=== PATIENT | female | born 1995 | race Caucasian/White ===

== ENCOUNTER 2018-11-27 10:12 | Emergency (ER) | payer OTHER ==
[~2018-11-27] VITALS: Ht 154.9 cm; Wt 62.0 kg
[~2018-11-27 10:12] MED LIST: IBUP800T48 PO; PREN1TAB49 PO
[2018-11-27 10:15] VITALS: BP 137/61; PULSE 79; RESP 18; Ht 154.9 cm; Wt 62.0 kg
--- NOTE | 2018-11-27 12:57 | ERD ---
ER Documentation Chief Complaint Chief Complaint pt bib self with c/o vag bleeding today, + preg test last wk, HPI 23-year-old female presenting with vaginal bleeding started today. Patient took a test at home a week ago and it was positive. She took Plan B after taking the test. Patient then took a repeat testing was negative however she is unsure if she is . Her LNMP was every 28. . Patient is having vaginal spotting with no clots. Denies medical problems. NKDA. Surgical history . Social history denies ROS All systems reviewed and are negative except as per history of present illness. Medications Home Meds Active Scripts Ibuprofen* (Motrin*) 800 Mg Tab, 800 MG PO Q6, #30 TAB Prov:MARLEEN BUCHANAN PA-C 10/20/18 Reported Medications Vits W-Ca,Fe,Fa(<1MG) () 1 Tab Tablet, 1 TAB PO DAILY 08/26/12 Allergies Allergies: Coded Allergies: No Known Allergies (Verified Allergy, Unknown, 10/20/18) PMhx/Soc History of Surgery: Yes ( x1) Anesthesia Reaction: No Hx Neurological Disorder: No Hx Respiratory Disorders: No Hx Cardiac Disorders: No Hx Psychiatric Problems: No Hx Miscellaneous Medical Probl: No Hx Alcohol Use: Yes (occassionally) Hx Substance Use: No Hx Tobacco Use: No Smoking Status: Never smoker FmHx Family History: No diabetes, No coronary disease, No other Physical Exam Vitals Vital Signs Date Temp Pulse Resp B/P (MAP) Pulse Ox O2 O2 Flow FiO2 Time Delivery Rate 11/27/18 98.3 79 18 137/61 97 10:15 (86) Physical Exam GENERAL: The patient is well-appearing, well-nourished, in no acute distress CHEST: Clear to auscultation bilaterally. There are no rales, wheezes or rhonchi. HEART: Regular rate and rhythm. No murmurs, clicks, rubs or gallops. ABDOMEN:Soft, nontender and nondistended. Good bowel sounds. No rebound or guarding. No gross peritonitis. No gross organomegaly or masses. BACK: No CVAT Result Diagram: 11/27/18 1111 Results 24 hrs Laboratory Tests Test 11/27/18 11:11 White Blood Count 7.7 10^3/ul Red Blood Count 4.91 10^6/ul Hemoglobin 13.6 g/dl Hematocrit 41.9 % Mean Corpuscular Volume 85.3 fl Mean Corpuscular Hemoglobin 27.7 pg Mean Corpuscular Hemoglobin Concent 32.5 g/dl Red Cell Distribution Width 13.2 % Platelet Count 348 10^3/UL Mean Platelet Volume 9.7 fl Immature Granulocytes % 0.400 % Neutrophils % 66.6 % Lymphocytes % 23.9 % Monocytes % 7.3 % Eosinophils % 1.4 % Basophils % 0.4 % Nucleated Red Blood Cells % 0.0 /100WBC Immature Granulocytes # 0.030 10^3/ul Neutrophils # 5.1 10^3/ul Lymphocytes # 1.8 10^3/ul Monocytes # 0.6 10^3/ul Eosinophils # 0.1 10^3/ul Basophils # 0.0 10^3/ul Nucleated Red Blood Cells # 0.0 10^3/ul Urine Color YELLOW Urine Clarity CLOUDY Urine pH 8.0 Urine Specific Tebbetts 1.020 Urine Ketones NEGATIVE mg/dL Urine Nitrite NEGATIVE mg/dL Urine Bilirubin NEGATIVE mg/dL Urine Urobilinogen NEGATIVE mg/dL Urine Leukocyte Esterase NEGATIVE Ross/ul Urine Microscopic RBC 6 /HPF Urine Microscopic WBC 5 /HPF Urine Squamous Epithelial Cells MANY /HPF Urine Bacteria FEW /HPF Urine Mucus MANY /HPF Urine Hemoglobin 1+ mg/dL Urine Glucose NEGATIVE mg/dL Urine Total Protein 1+ mg/dl Beta HCG, Quantitative < 2.4 mIU/ml Procedures/MDM DIAGNOSTIC IMAGING REPORT Patient: JEFF SIMMONS : 1995 Age: 23 Sex: F MR #: [id number] DOS: 11/27/18 1104 Ordering MD: NEWTON GARRIDO PA-C Location: [facility] Room/Bed: PROCEDURE: US Pelvis. CLINICAL INDICATION: vaginal bleeding TECHNIQUE: Multiple sonographic images of the pelvis were obtained utilizing a transabdominal technique. The images were reviewed on a PACS workstation. COMPARISON: 10/20/2018 FINDINGS: The uterus is enlarged in size and demonstrates a normal appearance of the myometrium. The uterus measures 12.1 x 4.0 x 6.3 cm in size. The endometrial stripe is homogeneous in appearance and has the thickness of 8 mm. Normal Doppler flow is identified in both ovaries. The right ovary measures 3.0 x 1.6 x 2.1 cm. The left ovary measures 4.6 x 3.0 x 4.2 cm. There is a 3.3 cm simple cyst. No free fluid is present within the pelvis.. RPTAT: AA IMPRESSION: No intrauterine gestation visualized. Simple cyst in the left ovary. Differential diagnosis includes early , missed or ectopic . Follow-up ultrasound and HCG levels is recommended. MDM: hormone is negative. Patient is not . Patient is likely experiencing menses. Urine is negative. Patient is discharged with supportive medications. I have low suspicion for hemodynamic instability. Hemoglobin is stable. Urine is negative. Patient is discharged and recommended follow-up with primary care. All questions answered at discharge Departure Diagnosis: Primary Impression: Vaginal bleeding Condition: Stable Patient Instructions: Menstruation and Your Child: Talking About Periods Referrals: [facility] YOU HAVE RECEIVED A MEDICAL SCREENING EXAM AND THE RESULTS INDICATE THAT YOU DO NOT HAVE A CONDITION THAT REQUIRES URGENT TREATMENT IN THE EMERGENCY DEPARTMENT. FURTHER EVALUATION AND TREATMENT OF YOUR CONDITION CAN WAIT UNTIL YOU ARE SEEN IN YOUR DOCTORS OFFICE WITHIN THE NEXT 1-2 DAYS. IT IS YOUR RESPONSIBILITY TO MAKE AN APPOINTMENT FOR FOLOW-UP CARE. IF YOU HAVE A PRIMARY DOCTOR --you should call your primary doctor and schedule an appointment IF YOU DO NOT HAVE A PRIMARY DOCTOR YOU CAN CALL OUR PHYSICIAN REFERRAL HOTLINE AT IF YOU CAN NOT AFFORD TO SEE A PHYSICIAN YOU CAN CHOSE FROM THE FOLLOWING [facility] [address] [facility]. [facility] [address] [facility] [address] [address] [facility] [address] [facility]. [facility] [address] [facility]. [facility]. [address] Additional Instructions: FOLLOW UP WITH YOUR PRIMARY CARE PHYSICIAN TOMORROW.Return to this facility if you are not improving as expected. ANETTE GARRIDO PA-C Nov 27, 2018 12:57
== END 2018-11-27 12:48 | disposition home or self-care (01) ==
LOC: FTE 10:12
DX: N93.9 Abnormal uterine and vaginal bleeding, unspecified (principal)
CPT/HCPCS: 36415; 76801; 81001; 84702; 85025; 86900; 86901; Z7502

== ENCOUNTER 2018-12-21 13:18 | Emergency (ER) | payer OTHER ==
[~2018-12-21] VITALS: Wt 73.6 kg
[2018-12-21 13:22] VITALS: BP 127/90; PULSE 95; RESP 18
--- NOTE | 2018-12-22 13:27 | ERD ---
ER Documentation Chief Complaint Chief Complaint VAG SPOTTING 2 WKS AGO, UNK ON , INTERMITTENT ABD CRAMPING HPI 23-year-old female presenting with vaginal bleeding times 2 weeks. Patient is unsure if she is . She states she had abnormal periods and her last known regular period was November 05. . Patient is experiencing some pelvic cramping. Denies any fevers. Denies dysuria. Denies medical problems. NKDA. Surgical history . Social history denies ROS All systems reviewed and are negative except as per history of present illness. Medications Home Meds Active Scripts Ibuprofen* (Motrin*) 800 Mg Tab, 800 MG PO Q6, #30 TAB Prov:MARLEEN BUCHANAN PA-C 10/20/18 Reported Medications Vits W-Ca,Fe,Fa(<1MG) () 1 Tab Tablet, 1 TAB PO DAILY 08/26/12 Allergies Allergies: Coded Allergies: No Known Allergies (Verified Allergy, Unknown, 10/20/18) PMhx/Soc History of Surgery: Yes ( x1) Anesthesia Reaction: No Hx Neurological Disorder: No Hx Respiratory Disorders: No Hx Cardiac Disorders: No Hx Psychiatric Problems: No Hx Miscellaneous Medical Probl: No Hx Alcohol Use: Yes (occassionally) Hx Substance Use: No Hx Tobacco Use: No FmHx Family History: No diabetes, No coronary disease, No other Physical Exam Vitals Vital Signs Date Temp Pulse Resp B/P (MAP) Pulse Ox O2 O2 Flow FiO2 Time Delivery Rate 12/21/18 98.8 95 18 127/90 97 13:22 (102) Physical Exam GENERAL: The patient is well-appearing, well-nourished, in no acute distress CHEST: Clear to auscultation bilaterally. There are no rales, wheezes or rhonchi. HEART: Regular rate and rhythm. No murmurs, clicks, rubs or gallops. ABDOMEN:Soft, nontender and nondistended. Good bowel sounds. No rebound or guarding. No gross peritonitis. No gross organomegaly or masses. BACK: No midline or flank tenderness. Result Diagram: 12/21/18 1404 Results 24 hrs Laboratory Tests Test 12/21/18 14:04 12/21/18 14:05 White Blood Count 8.4 10^3/ul Red Blood Count 4.83 10^6/ul Hemoglobin 13.3 g/dl Hematocrit 40.6 % Mean Corpuscular Volume 84.1 fl Mean Corpuscular Hemoglobin 27.5 pg Mean Corpuscular Hemoglobin Concent 32.8 g/dl Red Cell Distribution Width 13.0 % Platelet Count 372 10^3/UL Mean Platelet Volume 9.9 fl Immature Granulocytes % 0.200 % Neutrophils % 61.5 % Lymphocytes % 26.3 % Monocytes % 8.8 % Eosinophils % 2.7 % Basophils % 0.5 % Nucleated Red Blood Cells % 0.0 /100WBC Immature Granulocytes # 0.020 10^3/ul Neutrophils # 5.2 10^3/ul Lymphocytes # 2.2 10^3/ul Monocytes # 0.7 10^3/ul Eosinophils # 0.2 10^3/ul Basophils # 0.0 10^3/ul Nucleated Red Blood Cells # 0.0 10^3/ul Urine Color YELLOW Urine Clarity SLIGHTLY CLOUDY Urine pH 8.0 Urine Specific [place] 1.023 Urine Ketones NEGATIVE mg/dL Urine Nitrite NEGATIVE mg/dL Urine Bilirubin NEGATIVE mg/dL Urine Urobilinogen 1+ mg/dL Urine Leukocyte Esterase NEGATIVE Ross/ul Urine Microscopic RBC 7 /HPF Urine Microscopic WBC 5 /HPF Urine Squamous Epithelial Cells MODERATE /HPF Urine Mucus MANY /HPF Urine Hemoglobin NEGATIVE mg/dL Urine Glucose NEGATIVE mg/dL Urine Total Protein NEGATIVE mg/dl Beta HCG, Quantitative < 2.4 mIU/ml POC Beta HCG, Qualitative NEGATIVE Procedures/MDM DIAGNOSTIC IMAGING REPORT Patient: JEFF SIMMONS : 1995 Age: 23 Sex: F MR #: [id number] DOS: 12/21/18 1352 Ordering MD: NEWTON GARRIDO PA-C Location: E Room/Bed: PROCEDURE: US OB. CLINICAL INDICATION: Vaginal bleeding in . TECHNIQUE: Transabdominal and endovaginal imaging of the uterus is available for review COMPARISON: None available FINDINGS: No intrauterine is identified. The endometrial stripe is homogeneous and measures 11 mm in thickness. The uterus is otherwise unremarkable. The right ovary measures 3.8 x 2.1 x 2.5 cm and the left ovary measures 3.3 x 1.6 x 2.2 cm. No adnexal mass is identified. No free fluid is noted within the pelvis. IMPRESSION: No intrauterine identified. There are no adnexal masses. Correlation with serial beta HCGs and repeat pelvic ultrasound as clinically indicated, is recommended, as ectopic is not excluded on this examination. MDM: 23-year-old female presenting with vaginal bleeding. Patient has negative test. I have low suspicion for ectopic or . Patient may be experiencing light menses. Patient is told symptoms change or worsen to return the ER. Hemoglobin is stable and patient's urine is negative. All questions answered at discharge Departure Diagnosis: Primary Impression: Vaginal bleeding Condition: Stable Patient Instructions: Menorrhagia Referrals: [facility] YOU HAVE RECEIVED A MEDICAL SCREENING EXAM AND THE RESULTS INDICATE THAT YOU DO NOT HAVE A CONDITION THAT REQUIRES URGENT TREATMENT IN THE EMERGENCY DEPARTMENT. FURTHER EVALUATION AND TREATMENT OF YOUR CONDITION CAN WAIT UNTIL YOU ARE SEEN IN YOUR DOCTORS OFFICE WITHIN THE NEXT 1-2 DAYS. IT IS YOUR RESPONSIBILITY TO MAKE AN APPOINTMENT FOR FOLOW-UP CARE. IF YOU HAVE A PRIMARY DOCTOR --you should call your primary doctor and schedule an appointment IF YOU DO NOT HAVE A PRIMARY DOCTOR YOU CAN CALL OUR PHYSICIAN REFERRAL HOTLINE AT IF YOU CAN NOT AFFORD TO SEE A PHYSICIAN YOU CAN CHOSE FROM THE FOLLOWING [facility] [address] [facility]. [facility] [address] [facility] [address] [facility] [facility] [address] [facility]. [facility] [address] [facility]. [facility]. [address] Additional Instructions: FOLLOW UP WITH YOUR PRIMARY CARE PHYSICIAN TOMORROW.Return to this facility if you are not improving as expected. ANETTE GARRIDO PA-C Dec 22, 2018 13:27
== END 2018-12-21 15:44 | disposition home or self-care (01) ==
LOC: FTE 13:18
DX: N93.9 Abnormal uterine and vaginal bleeding, unspecified (principal); R10.2 Pelvic and perineal pain; Z32.02 Encounter for pregnancy test, result negative
CPT/HCPCS: 36415; 76801; 76817; 81001; 81025; 84702; 85025; 86900; 86901; Z7502; 81003

== ENCOUNTER 2019-04-19 16:31 | Emergency (ER) | payer OTHER ==
[~2019-04-19] VITALS: Ht 162.6 cm; Wt 68.2 kg
[~2019-04-19 16:31] MED LIST changes: +ONDA4TAB14 PO
[2019-04-19 16:33] VITALS: Ht 162.6 cm; Wt 68.2 kg
--- NOTE | 2019-04-19 18:49 | ERD ---
ER Documentation Chief Complaint Chief Complaint NAUSEA/VOMITING X 1 WEEK , 10 WEEKS PREG , DENIES ABD PAIN , NO VAG BLEED HPI The patient is a 24-year-old female, presenting to the ER because of nausea and vomiting for the last days, denies hematemesis/hematochezia, she had similar symptoms previously with her first . She is about 10 weeks , denies any vaginal bleeding, fever, chills, neck pain, chest pain, abdominal pain, dysuria, diarrhea. She does not smoke nor drink, 2 para 1 Past medical history: Anemia Past surgical history: ROS All systems reviewed and are negative except as per history of present illness. Medications Home Meds Active Scripts Ondansetron (Ondansetron Odt) 4 Mg Tab.rapdis, 4 MG PO Q6H PRN for NAUSEA AND/OR VOMITING, #10 TAB Prov:CATRACHITA FLOWERS MD 04/19/19 Ibuprofen* (Motrin*) 800 Mg Tab, 800 MG PO Q6, #30 TAB Prov:MARLEEN BUCHANAN PA-C 10/20/18 Reported Medications Vits W-Ca,Fe,Fa(<1MG) () 1 Tab Tablet, 1 TAB PO DAILY 08/26/12 Allergies Allergies: Coded Allergies: No Known Allergies (Verified Allergy, Unknown, 04/19/19) PMhx/Soc History of Surgery: Yes ( x1) Anesthesia Reaction: No Hx Neurological Disorder: No Hx Respiratory Disorders: No Hx Cardiac Disorders: No Hx Psychiatric Problems: No Hx Miscellaneous Medical Probl: No Hx Alcohol Use: Yes (occassionally) Hx Substance Use: No Hx Tobacco Use: No Physical Exam Vitals Vital Signs Date Temp Pulse Resp B/P (MAP) Pulse Ox O2 O2 Flow FiO2 Time Delivery Rate 04/19/19 98.0 79 16 119/56 100 Room Air 19:56 (77) 04/19/19 98.1 88 18 132/60 97 16:33 (84) Physical Exam Const: No acute distress. Head: Atraumatic. Eyes: Normal Conjunctiva. ENT: Normal External Ears, Nose and Mouth. Neck: Full range of motion. No meningismus. Resp: Clear to auscultation bilaterally. Cardio: Regular rate and rhythm. Abd: Soft, non distended, normal bowel sounds, non tender. Skin: No petechiae or rashes. Back: No midline or flank tenderness. Ext: No cyanosis, or edema. Neur: Awake and alert. No focal deficit Psych: Normal Mood and Affect. Results 24 hrs Laboratory Tests Test 04/19/19 19:31 Bedside Urine pH (LAB) 6.0 Bedside Urine Protein (LAB) 1+ Bedside Urine Glucose (UA) Negative Bedside Urine Ketones (LAB) 3+ Bedside Urine Blood 1+ Bedside Urine Nitrite (LAB) Negative Bedside Urine Leukocyte Esterase (L Negative Current Medications Medications Dose Sig/Kira Start Time Status Last (Trade) Ordered Route PRN Stop Time Admin Dose Reason Admin Sodium 1,000 ml @ Q1H ONCE 04/19/19 DC 04/19/19 Chloride 1,000 mls/hr IV 19:00 19:04 04/19/19 19:57 Ondansetron 4 mg ONCE STAT 04/19/19 DC 04/19/19 HCl (Zofran IV 18:54 19:03 Inj) 04/19/19 18:55 Procedures/MDM MEDICAL MAKING DECISION: The patient is a 24-year-old female, presenting with related vomiting, treated with 1 L normal saline for clinical dehydration, Zofran 4 mg IV for nausea with good response, is stable for present follow-up The differential diagnoses considered include but are not limited to cholelithiasis, cholecystitis, choledocholithiasis, cholangitis, pancreatitis, hepatitis, gastritis, peptic ulcer disease, gastric ulcer, appendicitis, cystitis, diverticulitis, partial small bowel obstruction. Departure Diagnosis: Primary Impression: Nausea and vomiting Condition: Good Comments She was discharged with Zofran I discussed the findings with the patient. I advised the patient to follow-up with the primary physician in about 1-2 days, sooner if needed and return if any concern. Disclaimer: Inadvertent spelling and grammatical errors are likely due to EHR/dictation software use and do not reflect on the overall quality of patient care. Also, please note that the electronic time recorded on this note does not necessarily reflect the actual time of the patient encounter. CATRACHITA FLOWERS MD Apr 19, 2019 18:49
[2019-04-19] MEDS ORDERED: ONDANSETRON 4 MG INJ IV STA (18:54)
[2019-04-19] MEDS ORDERED: SOD CHLORIDE 0.9% 1,000 ML IV ONE (19:00)
[2019-04-19 19:56] VITALS: BP 119/56; PULSE 79; RESP 16
== END 2019-04-19 19:57 | disposition home or self-care (01) ==
LOC: FTE 16:31
DX: O21.9 Vomiting of pregnancy, unspecified (principal); Z3A.10 10 weeks gestation of pregnancy
CPT/HCPCS: 81003; 96361; 96374; J2405; J7030; Z7502